=== PATIENT | female | born 1950 | race Caucasian/White ===

== ENCOUNTER 2017-05-28 09:52 | Emergency (ER) | payer OTHER, MEDICARE ==
--- NOTE | 2017-05-28 11:33 | EDPHY ---
H & P Time Seen by Provider: 05/28/17 10:57 HPI/ROS: CHIEF COMPLAINT: "Black eye " HISTORY OF PRESENT ILLNESS: The patient is a 66-year-old female who presents emergency department with a nontraumatic left black eye. Patient states that happened sometime last evening. When she looked in the mirror she noticed that she had blackness surrounding her eye. She did not recall any trauma. She had previously briskly dried her forehead after shower to "exfoliate. " Patient states she lifted weights earlier in the afternoon. Patient has a mild headache on the left side. She has no visual change or eye pain. No other bruising. Patient is not on blood thinners. Patient states that earlier in the evening she had worked out at the gym REVIEW OF SYSTEMS: My complete review of systems is negative except as mentioned in the HPI. Past Medical/Surgical History: Includes endometriosis Past surgical history: Includes hysterectomy, ACL repair, breast biopsy, cholecystectomy, wrist surgery, nasal surgery Social history: Patient does not smoke Smoking Status: Former smoker Physical Exam: Vitals noted GENERAL: Well-appearing, in no acute distress, alert. HEENT: Patient has bruising around her left eye. The globe appears normal with no proptosis. There is no injection. PERRLA. No hyphema. Normal pharynx , no signs of dehydration. NECK: No thyromegaly, no lymphadenopathy, supple. RESPIRATORY: Clear to auscultation bilaterally, no rales, rhonchi or wheezing. CVS: Regular rate and rhythm, no rubs, murmurs, or gallops. ABDOMEN: Soft, nontender, nondistended, no organomegaly. BACK: Normal to inspection, no CVA tenderness. SKIN: Normal color, no rash, warm, dry. No pallor. EXTREMITIES: No pedal edema, no calf tenderness, no Homans sign or cords, no joint swelling. NEURO/PSYCH: Higher functions: Alert and Oriented x3. Normal speech and cognition. Normal mood and affect. Cranial nerves: Normal as tested. Cerebellar: Normal as tested. Good finger to nose, good [id number], normal gait. Peripheral exam: [Normal motor exam. Normal sensation. Normal reflexes. Constitutional: Initial Vital Signs Temperature (C) 37.0 C 05/28/17 09:58 Heart Rate 78 05/28/17 09:58 Respiratory Rate 16 05/28/17 09:58 Blood Pressure 127/70 H 05/28/17 09:58 O2 Sat (%) 99 05/28/17 09:58 O2 Delivery Mode Room Air Allergies/Adverse Reactions: Sulfa (Sulfonamide Antibiotics) Allergy (Severe, Verified 05/09/16 18:21) Anaphylaxis tetracycline [Tetracycline] Allergy (Severe, Verified 05/09/16 18:21) Anaphylaxis latex Allergy (Verified 05/09/16 18:21) Penicillins Allergy (Verified 05/09/16 18:21) Rash Home Medications: Medication Instructions Recorded Bi-Est Vaginal Cream (Compounded) 1 erich VG DAILY 02/01/16 Progesterone,Micronized 150 mg PO HS 02/01/16 [Prometrium] Simethicone [Mylicon] 80 mg PO HS #0 tab.chew 02/18/16 Medical Decision Making - Diagnostics Imaging Results: Imaging Impressions Head CT 05/28/17 11:25 Impression: Normal noncontrast CT of the brain. Results called to Dr. Violette Reynoso at 12:15 PM at the time of the interpretation. ED Course/Re-evaluation: In the emergency department I discussed possible etiologies with the patient. I answered all of her questions. Head CT: Please refer the dictated report. No acute disease noted. I discussed this with Dr. Briones. Patient's laboratory studies were unremarkable. She is not anemic. She does not appear to have coagulopathy based on her coags. I discussed the results with the patient. I answered all her questions. On recheck she was doing well. She had no complaints. No focal neurologic deficits. Patient was given warnings prior to leaving. She will return with worsening symptoms. Differential Diagnosis: My differential includes but is not limited to spontaneous bruising, coagulopathy, contusion, subarachnoid hemorrhage - Data Points Laboratory Results: Laboratory Results 05/28/17 11:45 05/28/17 11:45 05/28/17 05/28/17 05/28/17 11:45 11:45 11:45 WBC 4.75 10^3/uL 10^3/uL (3.80-9.50) RBC 4.08 10^6/uL L 10^6/uL (4.18-5.33) Hgb 13.1 g/dL g/dL (12.6-16.3) Hct 37.8 % L % (38.0-47.0) MCV 92.6 fL fL (81.5-99.8) MCH 32.1 pg pg (27.9-34.1) MCHC 34.7 g/dL g/dL (32.4-36.7) RDW 12.9 % % (11.5-15.2) Plt Count 206 10^3/uL 10^3/uL (150-400) MPV 9.7 fL fL (8.7-11.7) Neut % (Auto) 52.4 % % (39.3-74.2) Lymph % (Auto) 35.8 % % (15.0-45.0) [place] % (Auto) 9.1 % % (4.5-13.0) Eos % (Auto) 1.9 % % (0.6-7.6) Baso % (Auto) 0.6 % % (0.3-1.7) Nucleat RBC Rel Count 0.0 % % (0.0-0.2) Absolute Neuts (auto) 2.49 10^3/uL 10^3/uL (1.70-6.50) Absolute Lymphs (auto) 1.70 10^3/uL 10^3/uL (1.00-3.00) Absolute Monos (auto) 0.43 10^3/uL 10^3/uL (0.30-0.80) Absolute Eos (auto) 0.09 10^3/uL 10^3/uL (0.03-0.40) Absolute Basos (auto) 0.03 10^3/uL 10^3/uL (0.02-0.10) Absolute Nucleated RBC 0.00 10^3/uL 10^3/uL (0-0.01) Immature Gran % 0.2 % % (0.0-1.1) Immature Gran # 0.01 10^3/uL 10^3/uL (0.00-0.10) PT 12.7 SEC SEC (12.0-15.0) INR 0.96 (0.83-1.16) APTT 25.4 SEC SEC (23.0-38.0) Sodium 138 mEq/L mEq/L (134-144) Potassium 3.9 mEq/L mEq/L (3.5-5.2) Chloride 103 mEq/L mEq/L (97-110) Carbon Dioxide 23 mEq/l mEq/l (22-31) Anion Gap 12 mEq/L mEq/L (8-16) BUN 13 mg/dL mg/dL (7-23) Creatinine 0.7 mg/dL mg/dL (0.6-1.0) Estimated GFR > 60 Glucose 105 mg/dL H mg/dL (70-100) Calcium 9.1 mg/dL mg/dL (8.5-10.4) Departure - Departure Disposition: Home, Routine, Self-Care Clinical Impression: Ecchymosis of left eye Qualifiers: Encounter type: initial encounter Qualified Code(s): S05.12XA - Contusion of eyeball and orbital tissues, left eye, initial encounter Condition: Good Instructions: Ecchymosis (ED) Additional Instructions: Return with increasing headache, new bruising, eye pain, visual change or any other concerns. Referrals: Chato Calvo MD [Primary Care Provider] - 2-3 days without fail
[2017-05-28 11:58] LABS: % IMMATURE GRANULYOCYTES 0.2 % (0.0-1.1); ABSOLUTE IMMATURE GRANULOCYTES 0.01 10^3/uL (0.00-0.10); ADD DIFF? NO; ADD MORPH? NO; ADD SCAN? NO; ATYPICAL LYMPHOCYTE FLAG 0 (0-99); FRAGMENT RBC FLAG 0 (0-99); HEMATOCRIT 37.8 % (38.0-47.0); HEMOGLOBIN 13.1 g/dL (12.6-16.3); LEFT SHIFT FLG 0 (0-99); LIPEMIA HEMOLYSIS FLAG 90 (0-99); MEAN CELL HEMOGLOBIN 32.1 pg (27.9-34.1); MEAN CELL HEMOGLOBIN CONCENTR. 34.7 g/dL (32.4-36.7); MEAN CELL VOLUME 92.6 fL (81.5-99.8); MEAN PLATELET VOLUME 9.7 fL (8.7-11.7); PLATELET CLUMPS FLAG 10 (0-99); PLATELET COUNT 206 10^3/uL (150-400); RED BLOOD CELL COUNT 4.08 10^6/uL (4.18-5.33); RED CELL DISTRIBUTION WIDTH 12.9 % (11.5-15.2)
[2017-05-28 12:06] LABS: ANION GAP 12 mEq/L (8-16); CALCIUM 9.1 mg/dL (8.5-10.4); CARBON DIOXIDE 23 mEq/l (22-31); CHLORIDE 103 mEq/L (97-110); CREATININE 0.7 mg/dL (0.6-1.0); GLOMERULAR FILTRATION RATE > 60; GLUCOSE 105 mg/dL (70-100); POTASSIUM 3.9 mEq/L (3.5-5.2); SODIUM 138 mEq/L (134-144)
[2017-05-28 12:07] LABS: INR 0.96 (0.83-1.16); PROTIME(PATIENT) 12.7 SEC (12.0-15.0)
[2017-05-28 12:08] LABS: APTT 25.4 SEC (23.0-38.0)
[2017-05-28 12:51] VITALS: BP 110/65; PULSE 67; RESP 15; TEMP 98.2; O2SAT 98
== END 2017-05-28 12:51 | disposition home or self-care (01) ==
DX: S05.12XA Contusion of eyeball and orbital tissues, left eye, initial encounter (principal); Z87.891 Personal history of nicotine dependence; Z91.040 Latex allergy status; X58.XXXA Exposure to other specified factors, initial encounter